=== PATIENT | male | born 1960 | race Caucasian/White ===

== ENCOUNTER → 2020-06-02 | Outpatient (CLI) | payer BC | END | disposition home or self-care (01) | LOC: RAH 07:44 | PROVIDERS: ATTEND Internal Medicine | DX: G95.20 Unspecified cord compression (principal); M62.838 Other muscle spasm | CPT/HCPCS: 72141 ==

== ENCOUNTER 2022-05-10 06:02 | Day surgery (SDC) | payer MEDICARE ==
[2022-05-06 10:47] LABS: HEMATOCRIT 42.7 % (42-54); MEAN CORPUSCULAR HEMOGLOBIN 30.8 pg (27.0-33.0); MEAN CORPUSCULAR HGB CONC 33.7 g/dL (32.0-36.0); MEAN CORPUSCULAR VOLUME 91.4 fL (79-99); RED BLOOD CELL COUNT(AUTO) 4.67 MIL/uL (4.50-6.20); RED CELL DISTRIBUTION WIDTH 13.1 % (11.0-15.5); WHITE BLOOD COUNT (AUTO) 5.9 K/uL (4.8-10.8)
[2022-05-06 10:56] LABS: INR 1.01 (0.85-1.15)
[2022-05-06 11:02] LABS: ALBUMIN 3.5 g/dL (3.5-5.0); CREATININE 0.7 mg/dL (0.5-1.5); POTASSIUM 4.1 mmol/L (3.5-5.1); TOTAL PROTEIN, SERUM 7.2 g/dL (6.0-8.3)
[2022-05-09 10:07] VITALS: BP 178/100
[2022-05-10] VITALS (16 sets, daily range): BP systolic 124–172; BP diastolic 85–105
[~2022-05-10] VITALS: Ht 185.4 cm; Wt 111.9 kg
[~2022-05-10 06:02] MED LIST: CARV25TA PO; CEFAZOLIN SODIUM 1 GM VIAL IVP SCH; ROSU40TA21 PO; VALS160T29 PO
[2022-05-10] MEDS ORDERED: CEFAZOLIN SODIUM 1 GM VIAL ONE (06:41)
[2022-05-10] MEDS ORDERED: LACTATED RINGERS 1000ML 1,000 ML IV ONE (06:41)
[2022-05-10] MEDS ORDERED: HYDR25TA PO (07:08)
[2022-05-10] MEDS ORDERED: MIDAZOLAM HCL 1 MG/ML 2ML VIAL ONE (07:31)
[2022-05-10] MEDS ORDERED: FENTANYL CITRATE PF 50 MCG/1 ML 2ML VIAL ONE (07:32)
[2022-05-10] MEDS ORDERED: BUPIVACAINE/PF 0.5% 10ML VIAL ONE (07:32)
[2022-05-10] MEDS ORDERED: LIDOCAINE HCL 400MG/20ML VIAL ONE (07:32)
[2022-05-10] MEDS ORDERED: PROPOFOL 10 MG/ML 20ML VIAL IV ONE ×4 (07:45→08:21)
[2022-05-10] MEDS ORDERED: PROPOFOL 1000 MG/100 ML 100 ML IV ONE (08:24)
== END 2022-05-10 11:00 | disposition home or self-care (01) ==
LOC: DAH 06:02
PROVIDERS: ATTEND Podiatrist Foot & Ankle Surgery
DX: M20.21 Hallux rigidus, right foot (principal); I10 Essential (primary) hypertension; E78.5 Hyperlipidemia, unspecified; E66.9 Obesity, unspecified; L40.9 Psoriasis, unspecified; K21.9 Gastro-esophageal reflux disease without esophagitis; Z79.01 Long term (current) use of anticoagulants; Z79.899 Other long term (current) drug therapy; Z98.890 Other specified postprocedural states; Z87.891 Personal history of nicotine dependence; Z72.89 Other problems related to lifestyle
CPT/HCPCS: 80053; 85027; 85610; 87426; 36415; 93005; 28289; A6260; A4663; A4649; J7120; J3010; J0690; J3490 ×2; J2250; J2704 ×5; A6446; A4930; A4215; A4223; A4222; A4221